=== PATIENT | female | born 1990 | race Caucasian/White ===

== ENCOUNTER 2023-08-29 23:57 | Emergency (ER) | payer SELFPAY ==
[2023-08-30 00:08] VITALS: BP 139/87; PULSE 91
[2023-08-30] MEDS: Amoxicillin/Clavulanate K 875-125 MG Tab PO ONE (00:13)
[2023-08-30] MEDS: Ketorolac 60 MG/2 ML SDV IM ONE (00:14)
== END 2023-08-30 00:26 | disposition home or self-care (01) ==
LOC: CC.ED 23:57
DX: K04.7 Periapical abscess without sinus (principal)
CPT/HCPCS: 96372; 99283; A9270-GY; J1885